=== PATIENT | female | born 1930 | race Caucasian/White ===

== ENCOUNTER 2016-09-30 14:24 | Outpatient (CLI) | payer MEDICARE ==
[2016-09-30 14:54] LABS: ALT (SGPT) 15 U/L (0-55); AST (SGOT) 15 U/L (5-34); Albumin 4.1 g/dL (3.4-4.8); Alkaline Phosphatase 78 U/L (40-150); Anion Gap 16 mmol/L (10-20); BUN (Urea Nitrogen) 27 mg/dL (9.8-20.1); Bilirubin, Direct 0.3 mg/dL (0.1-0.3); Calc. Creatinine Clearance 0 mL/min (70-130); Calcium 9.1 mg/dL (7.8-10.44); Carbon Dioxide 20 mmol/L (23-31); Cardiac Risk 3.1 (Less than 4.5); Chloride 108 mmol/L (98-107); Cholesterol 242 mg/dL (< 200 Desired); Estimated GFR-MDRD 38; Glucose 99 mg/dL (83-110); HDL Cholesterol 79 mg/dL (>60 Neg Risk); LDL Cholesterol, Calculated 136 mg/dL; Potassium 5.1 mmol/L (3.5-5.1); Protein, Total 7.3 g/dL (5.8-8.1); Sodium 139 mmol/L (136-145); Triglycerides 135 mg/dL (Less than 150)
== END 2016-09-30 14:25 | disposition home or self-care (01) ==
LOC: MADLABBHPM 14:24
PROVIDERS: ATTEND Family Medicine
DX: I12.9 Hypertensive chronic kidney disease with stage 1 through stage 4 chronic kidney disease, or unspecified chronic kidney disease (principal); N18.9 Chronic kidney disease, unspecified
CPT/HCPCS: 36415; 80048; 80061; 80076

== ENCOUNTER 2016-12-31 13:06 | Outpatient (CLI) | payer MEDICARE ==
[2016-12-31 13:47] LABS: #Basophils 0.1 thou/uL (0.0-0.2); #Eosinphils 0.2 thou/uL (0.0-0.7); #Monocytes 0.5 thou/uL (0.11-0.59); #Neutrophils 2.9 thou/uL (1.40-6.50); %Basophils 1.4 % (0.0-1.0); %Eosinophils 3.7 % (0.0-10.0); %Lymphocytes 35.4 % (21.0-51.0); %Monocytes 8.3 % (0.0-10.0); %Neutrophils 51.3 % (42.0-75.0); Hemoglobin 12.8 g/dL (12.0-16.0); Mean Corpuscular HGB CONC 32.2 g/dL (32.0-36.0); Mean Corpuscular Hemoglobin 29.8 pg (27.0-31.0); Mean Corpuscular Volume 92.6 fl (81.0-99.0); Mean Platelet Volume 8.2 fL (7.4-10.4); Platelet Count 278 thou/uL (130-400); RBC Distribution Width 12.4 % (11.5-14.5); Red Blood Cell (RBC) Count 4.31 mill/uL (4.20-5.40); White Blood Cell (WBC) Count 5.6 thou/uL (4.8-10.8)
[2016-12-31 14:07] LABS: ALT (SGPT) 13 U/L (8-55); AST (SGOT) 18 U/L (5-34); Albumin 3.8 g/dL (3.4-4.8); Alkaline Phosphatase 74 U/L (40-150); Anion Gap 13 mmol/L (10-20); BUN (Urea Nitrogen) 26 mg/dL (9.8-20.1); Bilirubin, Direct 0.2 mg/dL (0.1-0.3); Bilirubin, Total 0.6 mg/dL (0.2-1.2); Calc. Creatinine Clearance 0 mL/min (70-130); Calcium 8.7 mg/dL (7.8-10.44); Carbon Dioxide 18 mmol/L (23-31); Chloride 114 mmol/L (98-107); Cholesterol 198 mg/dl (< 200 Desired); Estimated GFR-MDRD 35; Glucose 97 mg/dL (83-110); HDL Cholesterol 65 mg/dL (>60 Neg Risk); LDL Cholesterol, Calculated 112 mg/dL; Potassium 4.9 mmol/L (3.5-5.1); Sodium 140 mmol/L (136-145); Triglycerides 103 mg/dL (Less than 150)
[2016-12-31 16:57] LABS: Bacteria/HPF 2+ HPF (None Seen); Bilirubin Negative (Negative); Blood, Urine Negative (Negative); Clarity Slightly Cloudy (Clear); Glucose, Urine (Dipstick) Negative (Negative); Leukocyte Moderate (Negative); Nitrite Negative (Negative); Protein, Urine (Dipstick) Negative (Neg-Trace); RBC/HPF 0-3 HPF (0-3); Urobilinogen 0.2 mg/dL (0.2-1.0)
== END 2016-12-31 13:07 | disposition home or self-care (01) ==
LOC: MADLABBHPM 13:06
PROVIDERS: ATTEND Family Medicine
DX: N18.9 Chronic kidney disease, unspecified (principal); E78.5 Hyperlipidemia, unspecified; F41.9 Anxiety disorder, unspecified
CPT/HCPCS: 36415; 80048; 80061; 80076; 81001; 84443; 85025

== ENCOUNTER 2017-04-07 09:14 | Outpatient (CLI) | payer MEDICARE ==
--- NOTE | 2017-04-07 14:22 | ULT ---
BILATERAL RENAL ULTRASOUND COMPLETE: History: 86-[place]-old female with history of chronic kidney disease. FINDINGS: The right kidney measures 7.6 x 4 x 3.4 cm. The left kidney measures 7.9 x 4.7 x 3.5 cm. No renal hy dronephrosis. The bladder appears unremarkable. IMPRESSION: 1. Small kidneys bilaterally without hydronephrosis or other acute process. POS: OFF
== END 2017-04-07 09:15 | disposition home or self-care (01) ==
LOC: MADULT 09:14
PROVIDERS: ATTEND Family Medicine
DX: N18.9 Chronic kidney disease, unspecified (principal)
CPT/HCPCS: 76770